=== PATIENT | female | born 1975 | race Caucasian/White ===

== ENCOUNTER 2020-12-06 07:09 | Inpatient (IN) ==
[2020-12-06] MEDS ORDERED: Ondansetron 4 MG/2 ML VIAL IVP ONE (07:19)
[2020-12-06] MEDS ORDERED: 0.9 % Sodium Chloride 1,000 ML IVC ONE ×3 (07:19→09:37)
[2020-12-06] MEDS ORDERED: Metoclopramide 10 MG/2 ML VIAL IVP STA (07:51)
[2020-12-06 08:02] LABS: Mean Platelet Volume 10.6 fL (9.4-12.4)
[2020-12-06 08:03] LABS: Hematocrit 39.6 % (35.3-44.9); Hemoglobin 11.1 g/dL (11.5-15.4); Mean Corpuscular Hemoglobin 29.8 pg (28.0-33.3); Mean Corpuscular Volume 106.5 fL (83.0-100.0); Platelet Count 483 K/mcL (140-400); Red Blood Count 3.72 M/mcL (3.82-4.97); Red Cell Distribution Width 12.9 % (11.5-14.5); White Blood Count 20.2 K/mcL (4.3-11.1)
[2020-12-06] MEDS ORDERED: *HR* LORazepam 1 MG TABLET PO ONE (08:34)
[2020-12-06] MEDS ORDERED: Pantoprazole 40 MG VIAL IVP ONE (08:41)
[2020-12-06 08:42] LABS: Albumin/Globulin Ratio 1.2 (1.1-2.2); Bilirubin,Indirect 0.4 mg/dL (0.0-1.0); Bilirubin,Total 0.4 mg/dL (0.3-1.0); Calcium 9.1 mg/dL (8.6-10.3); Globulin 3.4 g/dL (2.4-3.5); Potassium 5.3 mEq/L (3.5-5.1); Total Protein 7.4 g/dL (6.4-8.9); Troponin I 0.28 ng/mL (< 0.04)
[2020-12-06] MEDS ORDERED: 0.9 % Sodium Chloride 1,000 ML ONE (08:44)
[2020-12-06 09:17] LABS: VBG HCO3 8 mEq/L (21-27); VBG PCO2 31 mmHg (41-51); VBG PH 7.01 pH Units (7.32-7.42); VBG PO2 158 mmHg (25-50)
[2020-12-06] MEDS ORDERED: Aspirin 325 MG TABLET PO ONE ×2 (09:24→09:25)
[2020-12-06] MEDS ORDERED: *HR* Dextrose 50 % in Water (Vial) 50 ML VIAL IVP PRN (09:40)
[2020-12-06] MEDS ORDERED: D5% in 0.45% NACL 1,000 ML IVC PRN (09:40)
[2020-12-06] MEDS ORDERED: D5% in 0.45% NACL w KCl 20 MEQ/1,000 ML MLS IVC PRN (09:40)
[2020-12-06] MEDS ORDERED: Insulin Human Regular 100 UNIT in 0.9 % Sodium Chloride 100 ML IVC SCH (09:45)
[2020-12-06] MEDS ORDERED: Aspirin 81 MG TAB.CHEW PO ONE (09:45)
[2020-12-06] MEDS ORDERED: Naloxone 0.4 MG/ML INJ IVP PRN (09:49)
[2020-12-06] MEDS ORDERED: Metoclopramide 10 MG/2 ML VIAL IVP PRN (09:50)
[2020-12-06] MEDS: Insulin Human Regular 100 UNIT in 0.9 % Sodium Chloride 100 ML IVC SCH ×2 (10:18→23:06)
[2020-12-06 12:12] LABS: Calcium 7.7 mg/dL (8.6-10.3); Magnesium 2.3 mg/dL (1.6-2.6); Phosphorous 8.5 mg/dL (2.7-4.5); Potassium 4.4 mEq/L (3.5-5.1)
[2020-12-06] MEDS: 0.9 % Sodium Chloride 1,000 ML IVC SCH ×5 (13:23→17:58)
[2020-12-06] MEDS: 0.45 % Sodium Chloride w/KCl 20 MEQ/1,000 ML MLS IVC SCH ×2 (13:28→19:44)
[2020-12-06] MEDS: Doxycycline 100 MG in 0.9 % Sodium Chloride Mini Bag 100 ML IVPB SCH ×2 (13:29→20:57)
[2020-12-06] MEDS ORDERED: Prochlorperazine 10 MG/2 ML VIAL IVP PRN (13:44)
[2020-12-06] MEDS ORDERED: Perflutren Lipid Microsphere 1.3 ML in 0.9 % Sodium Chloride 8.7 ML IVP PRN ×2 (13:55→20:01)
[2020-12-06 15:26] LABS: Calcium 5.4 mg/dL (8.6-10.3); Potassium 4.2 mEq/L (3.5-5.1); Troponin I 0.8 ng/mL (< 0.04)
[2020-12-06 16:15] LABS: Hematocrit 29.3 % (35.3-44.9)
[2020-12-06 16:17] LABS: Hemoglobin 8.8 g/dL (11.5-15.4)
[2020-12-06] MEDS ORDERED: Calcium Chloride 1,000 MG in 0.9 % Sodium Chloride 100 ML IVPB ONE (16:40)
[2020-12-06 16:50] LABS: Prothrombin Time 11.9 Seconds (9.4-12.1)
[2020-12-06 17:01] LABS: ABG Base Excess -14 mEq/L (-2 to 3); ABG HCO3 11 mEq/L (21-27); ABG Oxygen Saturation 96 % (95-98); ABG PCO2 22 mmHg (35-45); ABG PO2 87 mmHg (85-104); ABG TCO2 12 mEq/L (20-26)
[2020-12-06] MEDS ORDERED: Ringers Solution, Lactated 2,000 ML IVC ONE (17:07)
[2020-12-06] MEDS ORDERED: Ringers Solution, Lactated 2,000 ML ONE (17:18)
[2020-12-06] MEDS: Norepinephrine 4 MG/254 ML IV.SOLN IVC SCH ×2 (17:39→23:06)
[2020-12-06 17:51] LABS: Calcium 6.9 mg/dL (8.6-10.3); Potassium 4.6 mEq/L (3.5-5.1)
[2020-12-06] MEDS ORDERED: *HR* Heparin 5,000 UNIT/ML VIAL SQ SCH (18:00)
[2020-12-06] MEDS ORDERED: Pantoprazole 40 MG VIAL IVP SCH (18:00)
[2020-12-06] MEDS ORDERED: Piperacillin/Tazobactam 3.375 GM in 0.9 % Sodium Chloride Mini Bag 100 ML IVPB SCH (18:00)
[2020-12-06 18:40] LABS: Calcium 7.7 mg/dL (8.6-10.3); Potassium 4.3 mEq/L (3.5-5.1)
[2020-12-06 19:32] LABS: Calcium 7.6 mg/dL (8.6-10.3); Potassium 3.9 mEq/L (3.5-5.1); Troponin I 7.69 ng/mL (< 0.04)
[2020-12-06 19:37] LABS: Hematocrit 28.5 % (35.3-44.9)
[2020-12-06 20:27] LABS: ABG Base Excess -13 mEq/L (-2 to 3); ABG HCO3 11 mEq/L (21-27); ABG Oxygen Saturation 86 % (95-98); ABG PCO2 22 mmHg (35-45); ABG PH 7.33 pH Units (7.32-7.45); ABG PO2 54 mmHg (85-104); ABG TCO2 12 mEq/L (20-26)
[2020-12-06] MEDS: Morphine Sulfate 2 MG/ML SYRINGE IVP PRN (20:32)
[2020-12-06 21:27] LABS: Bacteria,Urine Few per hpf (None-Few); Bilirubin,Urine Negative (Negative); Blood,Urine Trace (Negative); Clarity,Urine Clear (Clear); Color,Urine Colorless (Yellow); Glucose,Urine (UA) >=1000 mg/dL (Normal); Ketones,Urine 10 mg/dL (Negative); Leukocyte Esterase,Urine Negative (Negative); Nitrite,Urine Negative (Negative); PH,Urine 5.5 pH Units (5.0-8.0); Protein,Urine 30 mg/dL (Neg-Trace); RBC,Urine 0-3 per hpf (0-3); Renal Epithelial Cells,Urine Few per hpf (None-Few); Specific Gravity,Urine 1.018 (1.010-1.025); Squamous Epithelial Cell,Urine Moderate per hpf (None-Few); Urobilinogen,Urine Normal (Normal)
[2020-12-06 21:30] LABS: Calcium 7.3 mg/dL (8.6-10.3); Potassium 4.1 mEq/L (3.5-5.1)
[2020-12-06 22:27] LABS: Troponin I 13.37 ng/mL (< 0.04)
[2020-12-06 23:40] LABS: Calcium 7.3 mg/dL (8.6-10.3); Potassium 3.8 mEq/L (3.5-5.1); Troponin I 21.68 ng/mL (< 0.04)
[2020-12-07] MEDS: Morphine Sulfate 2 MG/ML SYRINGE IVP PRN (00:19)
[2020-12-07] MEDS ORDERED: *HR* Heparin 5,000 UNIT/ML VIAL IVP PRN ×2 (00:23)
[2020-12-07] MEDS ORDERED: *HR* Heparin 5,000 UNIT/ML VIAL IVP ONE (00:23)
[2020-12-07] MEDS ORDERED: Heparin 25,000UNIT/250ML 1/2NS 25,000 UNIT/250 ML IV.SOLN IVC SCH (00:30)
[2020-12-07 00:48] LABS: Adenovirus Not Detected (Not Detect); Bordetella Pertussis Not Detected (Not Detect); Chlamydophila pneumoniae Not Detected (Not Detect); Coronavirus 229E Not Detected (Not Detect); Coronavirus HKU1 Not Detected (Not Detect); Coronavirus NL63 Not Detected (Not Detect); Coronavirus OC43 Not Detected (Not Detect); Human Metapneumovirus Not Detected (Not Detect); Human Rhinovirus/Enterovirus Not Detected (Not Detect); Influenza A Subtype 2009 H1 Not Detected (Not Detect); Influenza B Not Detected (Not Detect); Mycoplasma pneumoniae Not Detected (Not Detect); Parainfluenza Virus 1 Not Detected (Not Detect); Parainfluenza Virus 2 Not Detected (Not Detect); Parainfluenza Virus 3 Not Detected (Not Detect); Parainfluenza Virus 4 Not Detected (Not Detect); Respiratory Syncytial Virus Not Detected (Not Detect); SARS-CoV-2 Not Detected (Not Detect)
[2020-12-07 01:14] LABS: Alanine Aminotransferase 23 Units/L (7-52); Albumin/Globulin Ratio 1.3 (1.1-2.2); Alkaline Phosphatase 81 Units/L (34-104); Aspartate Amino Transferase 84 Units/L (13-39); BUN/Creatinine Ratio 9 (6-26); Bilirubin,Total 0.4 mg/dL (0.3-1.0); Blood Urea Nitrogen 34 mg/dL (6-20); Calcium 7.3 mg/dL (8.6-10.3); Carbon Dioxide 16 mEq/L (23-29); Chloride 98 mEq/L (98-107); Chol/HDL Ratio 11.8 (0-4.9); Cholesterol 343 mg/dL (< 200); Globulin 2.4 g/dL (2.4-3.5); Glucose 483 mg/dL (70-105); HDL Cholesterol 29 mg/dL (40-59); Osmolality,Calculated 299 (280-300); Potassium 3.5 mEq/L (3.5-5.1); Sodium 130 mEq/L (136-145); Total Protein 5.4 g/dL (6.4-8.9); Triglycerides 613 mg/dL (< 150); eGFR For African Americans 15 (> 60); eGFR For Non-African Americans 13 (> 60)
[2020-12-07] MEDS ORDERED: FentaNYL (PF) 1,000 MCG/100 ML IV.SOLN IVC SCH (01:15)
[2020-12-07] MEDS: Insulin Human Regular 100 UNIT in 0.9 % Sodium Chloride 100 ML IVC SCH (02:00)
[2020-12-07 03:07] VITALS: BP 99/75
[2020-12-07] MEDS ORDERED: 0.45 % Sodium Chloride w/KCl 20 MEQ/1,000 ML MLS IVC SCH (03:15)
[2020-12-07 03:25] LABS: Basophils % 0.2 %; Hematocrit 27.6 % (35.3-44.9); Hemoglobin 9.1 g/dL (11.5-15.4); Immature Granulocytes % 1.1 % (0-4); Mean Corpuscular Hemoglobin 29.1 pg (28.0-33.3); Mean Platelet Volume 10.1 fL (9.4-12.4); Monocytes # 1.2 K/mcL (0.0-1.3); Monocytes % 5.8 %; Neutrophils # 16.7 K/mcL (1.6-8.9); Platelet Count 484 K/mcL (140-400); Red Blood Count 3.13 M/mcL (3.82-4.97); Segmented Neutrophils % 78.9 %; White Blood Count 21.2 K/mcL (4.3-11.1)
[2020-12-07 03:27] LABS: Mean Corpuscular Volume 88.2 fL (83.0-100.0)
[2020-12-07 03:43] LABS: VBG Ionized Calcium 1.01 mmol/L (1.15-1.35)
[2020-12-07 03:52] LABS: Calcium 7.5 mg/dL (8.6-10.3); Magnesium 1.3 mg/dL (1.6-2.6); Phosphorous 2.2 mg/dL (2.7-4.5); Potassium 3.4 mEq/L (3.5-5.1); Troponin I 38.21 ng/mL (< 0.04)
[2020-12-07] MEDS ORDERED: *HR* Succinylcholine 200 MG/10 ML VIAL IVP ONE (04:18)
[2020-12-07] MEDS ORDERED: *HR* Etomidate 20 MG/10 ML AMPUL IVP ONE (04:18)
[2020-12-07 05:36] LABS: Estimated Average Glucose 444 mg/dl; Hemoglobin A1C 17.1 %
[2020-12-07] MEDS ORDERED: *HR* LORazepam 1 MG TABLET PO SCH (09:00)
[2020-12-07] MEDS ORDERED: Aspirin Enteric Coated 81 MG Tablet PO SCH (09:00)
== END 2020-12-07 04:19 | disposition short-term general hospital (02) | DRG 190 ==
LOC: ICNU 07:09 → EMEROOARM 07:09 → ICNU 13:21
PROVIDERS: ADMIT Family Medicine; ATTEND Family Medicine

== ENCOUNTER 2021-07-16 19:47 | Observation (INO) ==
[2021-07-16 22:02] LABS: Basophils # 0.1 K/mcL (0.0-0.2); Basophils % 0.9 %; Eosinophils # 0.4 K/mcL (0.0-0.6); Eosinophils % 5.2 %; Hemoglobin 10.6 g/dL (11.5-15.4); Immature Granulocytes % 0.9 % (0-4); Lymphocytes % 14.6 %; Mean Corpuscular HGB Conc 32.1 g/dL (31.6-35.5); Mean Corpuscular Hemoglobin 30.6 pg (28.0-33.3); Mean Corpuscular Volume 95.4 fL (83.0-100.0); Mean Platelet Volume 8.9 fL (9.4-12.4); Monocytes # 0.4 K/mcL (0.0-1.3); Monocytes % 6.1 %; Neutrophils # 4.9 K/mcL (1.6-8.9); Platelet Count 338 K/mcL (140-400); Red Blood Count 3.46 M/mcL (3.82-4.97); Red Cell Distribution Width 12.4 % (11.5-14.5); Segmented Neutrophils % 72.3 %; White Blood Count 6.7 K/mcL (4.3-11.1)
[2021-07-16] MEDS ORDERED: Aspirin 325 MG TABLET PO ONE (22:19)
[2021-07-16 22:22] LABS: BUN/Creatinine Ratio 19 (6-26); Blood Urea Nitrogen 20 mg/dL (6-20); Calcium 9.7 mg/dL (8.6-10.3); Carbon Dioxide 23 mEq/L (23-29); Chloride 105 mEq/L (98-107); Glucose 70 mg/dL (70-105); Osmolality,Calculated 291 (280-300); Potassium 3.8 mEq/L (3.5-5.1); Sodium 140 mEq/L (136-145); eGFR For African Americans > 60 (> 60); eGFR For Non-African Americans 57 (> 60)
[2021-07-16] MEDS ORDERED: *HR* Heparin 5,000 UNIT/ML VIAL IVP PRN ×2 (22:40)
[2021-07-16] MEDS ORDERED: *HR* Heparin 5,000 UNIT/ML VIAL IVP ONE (22:40)
[2021-07-16] MEDS ORDERED: Heparin 25,000UNIT/250ML 1/2NS 25,000 UNIT/250 ML IV.SOLN IVC SCH (22:45)
[2021-07-16 22:58] LABS: Prothrombin Time 11.6 Seconds (9.4-12.1)
[2021-07-16 23:00] LABS: Heparin anti-factor XA UFH < 0.04 IU/mL (0.30-0.70)
[2021-07-16 23:04] LABS: D-Dimer 603 ng/mLFEU (0-500)
[2021-07-16 23:30] LABS: Influenza A PCR Negative (Negative); Influenza B PCR Negative (Negative); Resp. Syncytial Virus PCR Negative (Negative)
[2021-07-16 23:32] LABS: SARS-CoV-2 by PCR (In House) Negative (Negative)
[2021-07-16] MEDS ORDERED: Isovue-370 500 ML BOTTLE IVP ONE (23:55)
[2021-07-17] MEDS ORDERED: Naloxone 0.4 MG/ML INJ IVP PRN (01:06)
[2021-07-17] MEDS ORDERED: Melatonin 3 MG TABLET PO PRN (01:06)
[2021-07-17] MEDS ORDERED: *HR* Dextrose 50 % in Water (Syg) 50 ML SYRINGE IVP ONE (02:10)
[2021-07-17] MEDS ORDERED: *HR* Dextrose 50 % in Water (Syg) 50 ML SYRINGE ONE (02:13)
[2021-07-17] MEDS ORDERED: Perflutren Lipid Microsphere 1.3 ML in 0.9 % Sodium Chloride 8.7 ML IVP PRN (03:30)
[2021-07-17] MEDS ORDERED: D5% in Water 1,000 ML IVC PRN (03:53)
[2021-07-17] MEDS ORDERED: *HR* Dextrose 50 % in Water (Syg) 50 ML SYRINGE IVP PRN (03:53)
[2021-07-17] MEDS ORDERED: Dextrose Gel 15 GM/37.5 ML TUBE PO PRN ×2 (03:53)
[2021-07-17 04:38] LABS: Hematocrit 29.2 % (35.3-44.9); Hemoglobin 9.3 g/dL (11.5-15.4); Mean Corpuscular HGB Conc 31.8 g/dL (31.6-35.5); Mean Corpuscular Hemoglobin 30.7 pg (28.0-33.3); Mean Corpuscular Volume 96.4 fL (83.0-100.0); Mean Platelet Volume 8.9 fL (9.4-12.4); Platelet Count 273 K/mcL (140-400); Red Blood Count 3.03 M/mcL (3.82-4.97); Red Cell Distribution Width 12.4 % (11.5-14.5); White Blood Count 6.4 K/mcL (4.3-11.1)
[2021-07-17 04:44] LABS: BUN/Creatinine Ratio 21 (6-26); Blood Urea Nitrogen 21 mg/dL (6-20); Calcium 9.1 mg/dL (8.6-10.3); Carbon Dioxide 23 mEq/L (23-29); Chloride 107 mEq/L (98-107); Glucose 102 mg/dL (70-105); Osmolality,Calculated 291 (280-300); Potassium 3.8 mEq/L (3.5-5.1); Sodium 139 mEq/L (136-145); eGFR For African Americans > 60 (> 60); eGFR For Non-African Americans > 60 (> 60)
[2021-07-17 04:46] LABS: Troponin I 0.08 ng/mL (< 0.04)
[2021-07-17] MEDS: Insulin LISPRO 300 UNITS/3 ML VIAL SUBQ SCH ×3 (05:42→17:15)
[2021-07-17 08:37] LABS: Chol/HDL Ratio 7.7 (0-4.9); Cholesterol 262 mg/dL (< 200); HDL Cholesterol 34 mg/dL (40-59); LDL Cholesterol,Calculated 175 mg/dL (< 100); Triglycerides 264 mg/dL (< 150)
[2021-07-17 11:59] LABS: Estimated Average Glucose 220 mg/dl; Hemoglobin A1C 9.3 %
[2021-07-17] MEDS ORDERED: lisinopriL 5 MG TABLET PO SCH (13:45)
[2021-07-17] MEDS: Aspirin 81 MG TAB.CHEW PO SCH (15:04)
[2021-07-17] MEDS: Metoprolol XL (24 HR) Succ 50 MG TAB.ER.24H PO SCH (15:05)
[2021-07-17] MEDS: Gabapentin 300 MG CAPSULE PO SCH (19:44)
[2021-07-18] MEDS: Insulin LISPRO 300 UNITS/3 ML VIAL SUBQ SCH ×4 (00:19→17:43)
[2021-07-18] MEDS ORDERED: lisinopriL 5 MG TABLET PO SCH (09:00)
[2021-07-18] MEDS: Aspirin 81 MG TAB.CHEW PO SCH (09:08)
[2021-07-18] MEDS: Gabapentin 300 MG CAPSULE PO SCH ×2 (09:08→18:10)
[2021-07-18] MEDS: Metoprolol XL (24 HR) Succ 50 MG TAB.ER.24H PO SCH (14:50)
[2021-07-18 15:29] VITALS: BP 119/72; PULSE 78; TEMP 98.5; O2SAT 94
[2021-07-18] MEDS ORDERED: Insulin LISPRO 300 UNITS/3 ML VIAL SUBQ SCH (21:00)
== END 2021-07-18 18:47 | disposition home or self-care (01) ==
LOC: 3NENU 19:47 → EMEROOARM 19:47 → SUATTDRO 07-17 00:32 → 3NENU 07-17 01:36
PROVIDERS: ADMIT Internal Medicine; ATTEND Hospitalist

== ENCOUNTER 2022-03-28 07:18 | Observation (INO) ==
[2022-03-28] MEDS ORDERED: 0.9 % Sodium Chloride 1,000 ML IVC ONE (07:28)
[2022-03-28] MEDS ORDERED: *HR* Promethazine 25 MG/ML VIAL IM ONE (07:28)
[2022-03-28 08:40] LABS: Basophils % 0.6 %; Eosinophils # 0.1 K/mcL (0.0-0.6); Eosinophils % 0.9 %; Hematocrit 30.8 % (35.3-44.9); Hemoglobin 10.3 g/dL (11.5-15.4); Immature Granulocytes % 0.5 % (0-4); Lymphocytes # 0.5 K/mcL (0.6-4.6); Lymphocytes % 7.5 %; Mean Corpuscular HGB Conc 33.4 g/dL (31.6-35.5); Mean Corpuscular Hemoglobin 30.8 pg (28.0-33.3); Mean Corpuscular Volume 92.2 fL (83.0-100.0); Mean Platelet Volume 9.7 fL (9.4-12.4); Monocytes # 0.4 K/mcL (0.0-1.3); Monocytes % 5.3 %; Neutrophils # 5.6 K/mcL (1.6-8.9); Platelet Count 263 K/mcL (140-400); Red Blood Count 3.34 M/mcL (3.82-4.97); Red Cell Distribution Width 12.7 % (11.5-14.5); Segmented Neutrophils % 85.2 %; White Blood Count 6.6 K/mcL (4.3-11.1)
[2022-03-28 09:35] LABS: Alanine Aminotransferase 10 Units/L (7-52); Albumin 4.2 g/dL (3.5-5.7); Albumin/Globulin Ratio 1.4 (1.1-2.2); Alkaline Phosphatase 88 Units/L (34-104); Aspartate Amino Transferase 10 Units/L (13-39); BUN/Creatinine Ratio 22 (6-26); Bilirubin,Total 0.4 mg/dL (0.3-1.0); Blood Urea Nitrogen 32 mg/dL (6-20); Calcium 10.2 mg/dL (8.6-10.3); Carbon Dioxide 20 mEq/L (23-29); Chloride 99 mEq/L (98-107); Glucose 389 mg/dL (70-105); Magnesium 1.9 mg/dL (1.6-2.6); Osmolality,Calculated 299 (280-300); Phosphorous 3.6 mg/dL (2.7-4.5); Potassium 4.1 mEq/L (3.5-5.1); Sodium 133 mEq/L (136-145); Total Protein 7.2 g/dL (6.4-8.9); Troponin I < 0.03 ng/mL (< 0.04); eGFR For African Americans 47 (> 60); eGFR For Non-African Americans 39 (> 60)
[2022-03-28] MEDS ORDERED: Insulin Regular, Human 100 UNIT/ML IV ONE (09:40)
[2022-03-28] MEDS ORDERED: Insulin Human Regular 6 UNIT in 0.9 % Sodium Chloride 10 ML IV ONE (09:49)
[2022-03-28 10:34] LABS: VBG HCO3 23 mEq/L (21-27); VBG PCO2 42 mmHg (41-51); VBG PH 7.35 pH Units (7.32-7.42); VBG PO2 45 mmHg (25-50)
[2022-03-28] MEDS ORDERED: Insulin Human Regular 4 UNIT in 0.9 % Sodium Chloride 10 ML IV ONE (10:49)
[2022-03-28] MEDS ORDERED: Ondansetron 4 MG/2 ML VIAL IVP PRN (11:23)
[2022-03-28] MEDS ORDERED: Naloxone 0.4 MG/ML INJ IVP PRN (11:23)
[2022-03-28] MEDS ORDERED: D5% in Water 1,000 ML IVC PRN (11:27)
[2022-03-28] MEDS ORDERED: *HR* Dextrose 50 % in Water (Syg) 50 ML SYRINGE IVP PRN (11:27)
[2022-03-28] MEDS ORDERED: Dextrose Gel 15 GM/37.5 ML TUBE PO PRN ×2 (11:27)
[2022-03-28] MEDS ORDERED: 0.9 % Sodium Chloride 1,000 ML IVC SCH (11:30)
[2022-03-28 12:12] LABS: Bacteria,Urine Few per hpf (None-Few); Bilirubin,Urine Negative (Negative); Blood,Urine Negative (Negative); Clarity,Urine Clear (Clear); Color,Urine Light-Yellow (Yellow); Glucose,Urine (UA) >=1000 mg/dL (Normal); Ketones,Urine Negative (Negative); Leukocyte Esterase,Urine Moderate (Negative); Mucus,Urine Few per lpf (None-Few); Nitrite,Urine Positive (Negative); Protein,Urine Trace mg/dL (Neg-Trace); RBC,Urine 0-3 per hpf (0-3); Specific Gravity,Urine 1.023 (1.010-1.025); Squamous Epithelial Cell,Urine Few per hpf (None-Few); Urobilinogen,Urine Normal (Normal); WBC,Urine 15-30 per hpf (0-3)
[2022-03-28] MEDS ORDERED: Insulin DETEMIR 100 UNIT/ML X5UNITS SUBQ ONE (12:15)
[2022-03-28 12:48] LABS: Adenovirus Not Detected (Not Detect); Bordetella Pertussis Not Detected (Not Detect); Chlamydophila pneumoniae Not Detected (Not Detect); Coronavirus 229E Not Detected (Not Detect); Coronavirus HKU1 Not Detected (Not Detect); Coronavirus NL63 Not Detected (Not Detect); Coronavirus OC43 Not Detected (Not Detect); Human Metapneumovirus Not Detected (Not Detect); Human Rhinovirus/Enterovirus Not Detected (Not Detect); Influenza A Subtype 2009 H1 Not Detected (Not Detect); Influenza B Not Detected (Not Detect); Parainfluenza Virus 1 Not Detected (Not Detect); Parainfluenza Virus 2 Not Detected (Not Detect); Parainfluenza Virus 3 Not Detected (Not Detect); Parainfluenza Virus 4 Not Detected (Not Detect); Respiratory Syncytial Virus Not Detected (Not Detect); SARS-CoV-2 Not Detected (Not Detect)
[2022-03-28 12:49] LABS: Mycoplasma pneumoniae Not Detected (Not Detect)
[2022-03-28] MEDS: Insulin LISPRO 300 UNITS/3 ML VIAL SUBQ SCH ×2 (14:38→17:07)
[2022-03-28] MEDS: Gabapentin 300 MG CAPSULE PO SCH ×2 (14:46→20:29)
[2022-03-28] MEDS: levoFLOXacin 750 MG/150 ML 750 MG/150 ML BAG IVPB SCH (14:49)
[2022-03-28 15:48] LABS: Estimated Average Glucose 367 mg/dl; Hemoglobin A1C 14.4 %
[2022-03-28 15:54] LABS: Calcium 9.6 mg/dL (8.6-10.3); Potassium 4.2 mEq/L (3.5-5.1)
[2022-03-28] MEDS: levETIRAcetam 250 MG TABLET PO SCH (17:09)
[2022-03-28] MEDS: *HR* Heparin 5,000 UNIT/ML VIAL SQ SCH (17:09)
[2022-03-28] MEDS ORDERED: *HR* LORazepam 1 MG TABLET PO PRN (21:00)
[2022-03-28] MEDS ORDERED: NON-FORMULARY MEDICATION 1 EACH EACH (Lorazepam [Lorazepam] 2 MG Tablet) PO SCH (21:00)
[2022-03-29 02:06] LABS: Basophils % 0.5 %; Eosinophils # 0.1 K/mcL (0.0-0.6); Eosinophils % 1.3 %; Hematocrit 26.2 % (35.3-44.9); Immature Granulocytes % 0.5 % (0-4); Lymphocytes % 25.4 %; Mean Corpuscular HGB Conc 32.8 g/dL (31.6-35.5); Mean Corpuscular Hemoglobin 30.5 pg (28.0-33.3); Mean Corpuscular Volume 92.9 fL (83.0-100.0); Monocytes # 0.3 K/mcL (0.0-1.3); Monocytes % 8.7 %; Neutrophils # 2.4 K/mcL (1.6-8.9); Platelet Count 223 K/mcL (140-400); Red Blood Count 2.82 M/mcL (3.82-4.97); Red Cell Distribution Width 12.7 % (11.5-14.5); Segmented Neutrophils % 63.6 %; White Blood Count 3.8 K/mcL (4.3-11.1)
[2022-03-29 02:12] LABS: Calcium 8.6 mg/dL (8.6-10.3); Potassium 3.8 mEq/L (3.5-5.1)
[2022-03-29 03:54] LABS: Hemoglobin 8.6 g/dL (11.5-15.4)
[2022-03-29] MEDS: levETIRAcetam 250 MG TABLET PO SCH (05:35)
[2022-03-29] MEDS: *HR* Heparin 5,000 UNIT/ML VIAL SQ SCH ×2 (05:35→17:09)
[2022-03-29] MEDS: Metoprolol XL (24 HR) Succ 50 MG TAB.ER.24H PO SCH (09:37)
[2022-03-29] MEDS: Aspirin Enteric Coated 81 MG Tablet PO SCH (09:53)
[2022-03-29] MEDS: Gabapentin 300 MG CAPSULE PO SCH ×3 (09:53→21:56)
[2022-03-29] MEDS: Insulin LISPRO 300 UNITS/3 ML VIAL SUBQ SCH ×3 (09:54→17:08)
[2022-03-29] MEDS: levoFLOXacin 750 MG/150 ML 750 MG/150 ML BAG IVPB SCH (11:52)
[2022-03-29] MEDS ORDERED: Insulin LISPRO 300 UNITS/3 ML VIAL SUBQ ONE (20:02)
[2022-03-29] MEDS ORDERED: Insulin DETEMIR 100 UNIT/ML X5UNITS SUBQ SCH (21:00)
[2022-03-29 21:21] LABS: Magnesium 1.6 mg/dL (1.6-2.6); Phosphorous 3.3 mg/dL (2.7-4.5)
[2022-03-29 21:41] LABS: Prolactin 8.12 ng/mL (3.80-23.20)
[2022-03-29] MEDS ORDERED: Acetaminophen 325 MG TABLET PO PRN (22:15)
[2022-03-30] MEDS: *HR* Heparin 5,000 UNIT/ML VIAL SQ SCH (06:46)
[2022-03-30 06:55] VITALS: BP 96/65; PULSE 69; TEMP 97.8; O2SAT 96
[2022-03-30] MEDS: Gabapentin 300 MG CAPSULE PO SCH (08:39)
[2022-03-30] MEDS: Insulin LISPRO 300 UNITS/3 ML VIAL SUBQ SCH (08:40)
[2022-03-30] MEDS: Aspirin Enteric Coated 81 MG Tablet PO SCH (08:40)
[2022-03-30] MEDS: Metoprolol XL (24 HR) Succ 50 MG TAB.ER.24H PO SCH (08:40)
== END 2022-03-30 11:40 | disposition home or self-care (01) ==
LOC: 3NENU 07:18 → EMEROOARM 07:18 → SUATTDRO 13:11 → 3NENU 14:13
PROVIDERS: ADMIT Internal Medicine; ATTEND Internal Medicine